=== PATIENT | female | born 1950 | race Caucasian/White ===

== ENCOUNTER → 2019-10-29 | Outpatient (CLI) | payer MEDICARE, OTHER ==
--- NOTE | 2019-10-29 18:09 | Diagnostic Imaging Report ---
HISTORY: Pain in the bilateral hands. No known injury. COMPARISON: None. TECHNIQUE: Two views of the bilateral hands. FINDINGS: No acute fracture or dislocation is seen in the bilateral hands. Alignment is normal. There are moderate degenerative changes in the bilateral hands, most notable at the basal joints of the thumb, and the right first interphalangeal joint. No cortical erosions are seen. IMPRESSION: 1. Degenerative changes in the bilateral hands with no acute osseous abnormality seen. Dictated by: Dictated on workstation # [id number]
== END ==
LOC: RAD FS 15:21
PROVIDERS: ATTEND Family Medicine
DX: M19.042 Primary osteoarthritis, left hand (principal); M19.041 Primary osteoarthritis, right hand

== ENCOUNTER → 2022-03-23 | Outpatient (CLI) | payer MEDICARE, OTHER ==
--- NOTE | 2022-03-23 13:03 | Diagnostic Imaging Report ---
PROCEDURE: CT head without contrast. TECHNIQUE: Multiple contiguous axial images were obtained through the brain without the use of intravenous contrast. Auto Exposure Controls were utilized during the CT exam to meet ALARA standards for radiation dose reduction. INDICATION: Fall, head pain, nausea, and dizziness; patient is anticoagulated. COMPARISON: I have no priors. FINDINGS: There is no intracranial hemorrhage, hydrocephalus, cerebral edema, mass, mass effect, nor evidence for an elevation of the intracerebral pressures. There is no calvarial fracture deformity. There is no hemo-sinus or pneumocephalus. Some angular deformity of the nasal septum without adjacent swelling or blood. This is presumed old, and no acute appearing facial fracture found. IMPRESSION: 1. No hemorrhage, edema, or acute appearing abnormalities. 2. Septal deformity, presumed old given the lack of regional swelling or sinus cavity blood. Dictated by: Dictated on workstation # [id number]
--- NOTE | 2022-03-23 16:22 | Diagnostic Imaging Report ---
INDICATION: Fall with nasal pain. EXAMINATION: AP and lateral views of the nasal bones were obtained. There is a fracture of the tip of the nasal bones, with slight inferior displacement of the distal fragment. No other bony abnormality is seen. Visualized sinuses are clear. IMPRESSION: Acute fracture of distal tip of the nasal bones with inferior displacement of distal fragment. Dictated by: Dictated on workstation # [id number]
== END ==
LOC: RAD FS 12:01
PROVIDERS: ATTEND Nurse Practitioner Family
DX: S02.2XXA Fracture of nasal bones, initial encounter for closed fracture (principal); W19.XXXA Unspecified fall, initial encounter
CPT/HCPCS: 70160; 70450

== ENCOUNTER → 2022-04-08 | Outpatient (CLI) | payer MEDICARE ==
--- NOTE | 2022-04-08 14:01 | Diagnostic Imaging Report ---
PROCEDURE: MR imaging of the brain without contrast. TECHNIQUE: Multiplanar, multisequence MR imaging of the brain was performed without contrast. INDICATION: Trauma. Head injury. Fall. Concussion. COMPARISON: CT head without contrast 03/23/2022. FINDINGS: Moderate generalized parenchymal volume loss. Mild nonspecific T2 hyperintensities in the supratentorial white matter are compatible with chronic small vessel ischemic change. 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 No restricted water diffusion. No hemosiderin deposition or evidence of intracranial hemorrhage. Normal morphology including the major midline structures, sella, posterior fossa, and cerebellopontine angle. Normal intracranial flow voids. No hydrocephalus or extra-axial fluid collections. Postoperative changes in the globes. Paranasal sinuses and mastoids are clear. Normal bone marrow signal. IMPRESSION: 1. No acute intracranial MRI findings. No evidence of acute infarction or hemorrhage. 2. 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 3. Age-appropriate generalized parenchymal volume loss and chronic small vessel ischemic change. Dictated by: Dictated on workstation # [id number]
== END ==
LOC: RAD 12:04
PROVIDERS: ATTEND Family Medicine
DX: I63.9 Cerebral infarction, unspecified (principal); E86.9 Volume depletion, unspecified; I99.8 Other disorder of circulatory system; S02.2XXD Fracture of nasal bones, subsequent encounter for fracture with routine healing
CPT/HCPCS: 70551

== ENCOUNTER 2022-05-18 11:28 | Emergency (ER) | payer MEDICARE ==
[~2022-05-18] VITALS: Ht 162.5 cm; Wt 97.7 kg
[2022-05-18] MEDS ORDERED: CEFEPIME INJECTION 1,000 MG in NS (IVPB) 50 ML IV ONE (11:45)
[2022-05-18] MEDS ORDERED: VANCOMYCIN INJECTION 1,000 MG in NS (IVPB) 250 ML IV ONE (11:45)
[2022-05-18] MEDS ORDERED: NS IV ONE (11:45)
[2022-05-18 11:47] LABS: BASOPHILS # (AUTO) 0.1 10^3/uL (0.0-0.1); BASOPHILS % (AUTO) 1 % (0-10); EOSINOPHILS # (AUTO) 0.3 10^3/uL (0.0-0.3); EOSINOPHILS % (AUTO) 3 % (0-10); HEMATOCRIT 30 % (35-52); HEMOGLOBIN 9.8 g/dL (11.5-16.0); LYMPHOCYTES % (AUTO) 9 % (12-44); MEAN CORPUSCULAR HEMOGLOBIN 29 pg (25-34); MEAN CORPUSCULAR HGB CONC 33 g/dL (32-36); MEAN CORPUSCULAR VOLUME 89 fL (80-99); MEAN PLATELET VOLUME 8.3 fL (9.0-12.2); MONOCYTES # (AUTO) 0.9 10^3/uL (0.0-1.0); MONOCYTES % (AUTO) 8 % (0-12); NEUTROPHILS # (AUTO) 8.9 10^3/uL (1.8-7.8); NEUTROPHILS % (AUTO) 79 % (42-75); PLATELET COUNT 384 10^3/uL (130-400); WHITE BLOOD COUNT 11.2 10^3/uL (4.3-11.0)
--- NOTE | 2022-05-18 11:51 | ED General ---
General Stated Complaint: DIAPHORESIS; ALTERED VISION; AMS; LT GREAT TOE INF Source of Information: Patient Exam Limitations: No Limitations History of Present Illness Date Seen by Provider: May 18, 2022 Time Seen by Provider: 11:33 Initial Comments 72-year-old female with diabetes, high blood pressure high cholesterol presents to the emergency department today for hypotension. She has been seeing Dr. Chisholm and started on antibiotics for the last 8 days for left great toe infection. She states she has pain in her left great toe extending up into her left leg to just proximal to the knee. She has had intermittent chills but no documented fevers. She went to his office today for a checkup and her blood pressure was in the 60s70s systolic. She states she woke up normally but about 1045 she had "spotty vision and lightheadedness." She felt a little "woozy" at that time. She did take her blood pressure medication this morning as per her usual. She denies any focal weakness numbness or tingling. All other systems reviewed and negative except documented per HPI. Voice recognition software was used to help create this chart Allergies and Home Medications Allergies Coded Allergies: Penicillins (Verified Allergy, Unknown, 05/18/22) Patient Home Medication List Home Medication List Reviewed: Yes Review of Systems Review of Systems Constitutional: weakness Past Diwfrkc-Csgqym-Gytiwp Hx Patient Social History Tobacco Use?: No Use of E-Cig and/or Vaping dev: No Substance use?: No Alcohol Use?: No Past Medical History Surgery/Hospitalization HX: htn, HLP, DM Family Medical History Reviewed Nursing Family Hx No Pertinent Family Hx Physical Exam Vital Signs Vital Signs - First Documented 05/18/22 11:28 Temp 35.1 Pulse 65 Resp 18 B/P (MAP) 66/46 (53) Pulse Ox 98 O2 Delivery Room Air Capillary Refill : Height, Weight, BMI Height: '" Weight: lbs. oz. kg; BMI Method: General Appearance: No Apparent Distress HEENT: PERRL/EOMI, Normal ENT Inspection, Pharynx Normal Neck: Full Range of Motion, Non Tender, Supple Respiratory: Chest Non Tender, Lungs Clear, Normal Breath Sounds, No Accessory Muscle Use, No Respiratory Distress Cardiovascular: Regular Rate, Rhythm, No Murmur, Normal Peripheral Pulses Gastrointestinal: Normal Bowel Sounds, No Organomegaly, Non Tender, Soft Extremity: Other (Left great toe is swollen, erythematous with some disclamation. Significantly tender to palpation. She has tenderness palpation and mild swelling from this area up to just proximal to her left knee. I am able to obtain pulses DP/PT with doppler and they are marked. Good strength and sensation.) Neurologic/Psychiatric: Alert, Oriented x3, No Motor/Sensory Deficits, Normal Mood/Affect, review trainer II-XII Norm as Tested Skin: Other (see above) Focused Exam Lactate Level 05/18/22 11:34: Lactic Acid Level 1.17 Lactic Acid Level Laboratory Tests Test 05/18/22 11:34 Lactic Acid Level 1.17 MMOL/L (0.50-2.00) Progress/Results/Core Measures Suspected Sepsis SIRS Temperature: Pulse: Respiratory Rate: Laboratory Tests 05/18/22 11:34: White Blood Count 11.2H Blood Pressure / Mean: 05/18/22 11:34: Lactic Acid Level 1.17 Laboratory Tests 05/18/22 11:34: Creatinine 4.12H, Platelet Count 384, Total Bilirubin 0.2 05/18/22 14:00: Creatinine 3.91H Results/Orders Lab Results Laboratory Tests Test 05/18/22 11:34 05/18/22 13:50 05/18/22 14:00 Range/Units White Blood Count 11.2 H 4.3-11.0 10^3/uL Red Blood Count 3.38 L 3.80-5.11 10^6/uL Hemoglobin 9.8 L 11.5-16.0 g/dL Hematocrit 30 L 35-52 % Mean Corpuscular Volume 89 80-99 fL Mean Corpuscular Hemoglobin 29 25-34 pg Mean Corpuscular Hemoglobin Concent 33 32-36 g/dL Red Cell Distribution Width 13.4 10.0-14.5 % Platelet Count 384 130-400 10^3/uL Mean Platelet Volume 8.3 L 9.0-12.2 fL Immature Granulocyte % (Auto) 1 % Neutrophils (%) (Auto) 79 H 42-75 % Lymphocytes (%) (Auto) 9 L 12-44 % Monocytes (%) (Auto) 8 0-12 % Eosinophils (%) (Auto) 3 0-10 % Basophils (%) (Auto) 1 0-10 % Neutrophils # (Auto) 8.9 H 1.8-7.8 10^3/uL Lymphocytes # (Auto) 1.0 1.0-4.0 10^3/uL Monocytes # (Auto) 0.9 0.0-1.0 10^3/uL Eosinophils # (Auto) 0.3 0.0-0.3 10^3/uL Basophils # (Auto) 0.1 0.0-0.1 10^3/uL Immature Granulocyte # (Auto) 0.1 0.0-0.1 10^3/uL Sodium Level 131 L 135 135-145 MMOL/L Potassium Level 6.7 *H 5.7 H 3.6-5.0 MMOL/L Chloride Level 102 106 98-107 MMOL/L Carbon Dioxide Level 16 L 17 L 21-32 MMOL/L Anion Gap 13 12 5-14 MMOL/L Blood Urea Nitrogen 65 H 64 H 7-18 MG/DL Creatinine 4.12 H 3.91 H 0.60-1.30 MG/DL Estimat Glomerular Filtration Rate 11 12 BUN/Creatinine Ratio 16 16 Glucose Level 179 H 174 H 70-105 MG/DL Glucometer 168 H 157 H 70-110 MG/DL Lactic Acid Level 1.17 0.50-2.00 MMOL/L Calcium Level 8.5 8.1 L 8.5-10.1 MG/DL Corrected Calcium 8.9 8.5-10.1 MG/DL Total Bilirubin 0.2 0.1-1.0 MG/DL Aspartate Amino Transf (AST/SGOT) 9 5-34 U/L Alanine Aminotransferase (ALT/SGPT) 8 0-55 U/L Alkaline Phosphatase 213 H 40-136 U/L Total Protein 6.8 6.4-8.2 GM/DL Albumin 3.5 3.2-4.5 GM/DL My Orders Orders - CHANTEL GARCÍA DO Cbc With Automated Diff (05/18/22 11:36) Comprehensive Metabolic Panel (05/18/22 11:36) Blood Culture (05/18/22 11:36) Chest 1 View Ap/Pa Only (05/18/22 11:36) Ed Iv/Invasive Line Start (05/18/22 11:36) Ed Iv/Invasive Line Start (05/18/22 11:36) Vital Signs Adult Sepsis Patie Q15M (05/18/22 11:36) Remove Rings In Anticipation O (05/18/22 11:36) Lactic Acid Analyzer (05/18/22 11:36) Ns Iv 1000 Ml (Sodium Chloride 0.9%) (05/18/22 11:45) Cefepime Injection (Maxipime Injection) (05/18/22 11:45) Vancomycin Injection (Vancomycin Injecti (05/18/22 11:45) Calc Gluc 1 Gm/100 Ml Ivpb (Calcium Gluc (05/18/22 12:15) Insulin (Regular) Human (Novolin R (Per (05/18/22 12:15) D50w (Emergency) Syringe (Dextrose 50% 5 (05/18/22 12:15) Sodium Bicarbonate 8.4% Syr (Sodium Bica (05/18/22 12:15) Ekg Tracing (05/18/22 12:14) Basic Metabolic Panel (05/18/22 13:49) Medications Given in ED Vital Signs/I&O 05/18/22 05/18/22 11:28 14:55 Temp 35.1 Pulse 65 67 Resp 18 14 B/P (MAP) 66/46 (53) 123/39 Pulse Ox 98 97 O2 Delivery Room Air Room Air Capillary Refill : ECG Comment My interpretation EKG is sinus rhythm with rate of 62 bpm. Normal intervals. Normal axis. No ST or T wave abnormalities. No ectopy. There is baseline interference in lead V5 and V6. No evidence for hyperkalemia. No STEMI. Diagnostic Imaging Comments My independent interpretation of the AP chest x-ray shows no acute pulmonary or cardiac abnormality. No free air under the diaphragm. Critical Care Note Critical Care Total Time (minutes) 60 Departure Communication (Admissions) Spoke to Dr. Jacques at 1234. She states to the patient's significant renal disease, hyperkalemia she would feel more comfortable with her going to a facility that has nephrology. She does have history of chronic kidney disease stage III states her most recent GFR had decreased from 17-15. She sees Dr. Avendano at [place] typically. Denies any changes in her urine output and has no dysuria, hematuria or other symptoms. Her blood pressure rapidly improved with IV fluids. Now 102/33 and she is feeling much better. Is unclear whether her blood pressures are related to dehydration or septic infection. Regardless she did get broad-spectrum antibiotics early on in her hospital course and was given 30 cc/kg bolus for sepsis required by CMS. 1 L this was given as an bolus and then the rest was decreased to 200 cc/h as her blood pressures rapidly improved and I do not want to cause pulmonary congestion I initially spoke with [facility] in [place]. They are at capacity and unable to take transfers a t this time. I spoke with Marianela Ventura and they are checking on availability at this time. Spoke to Dr Dong at 1320, accepts patient in transfer. Pending bed assignment. 1435: Marianela Ventura called to assign be, [id number]. Pending ambulance transport. Impression Primary Impression: CKD (chronic kidney disease) stage 4, GFR 15-29 ml/min Additional Impressions: Hyperkalemia Infected blister of great toe of left foot Qualified Codes: S90.422A - Blister (nonthermal), left great toe, initial encounter; L08.9 - Local infection of the skin and subcutaneous tissue, unspecified Septic shock Disposition: 02 XFER SHT-TRM HOSP Condition: Stable Departure-Patient Inst. Referrals: SELFMILAN MD (PCP/Family) Primary Care Physician CHANTEL GARCÍA DO May 18, 2022 11:51
--- NOTE | 2022-05-18 12:03 | Diagnostic Imaging Report ---
CLINICAL INDICATIONS: Patient with altered mental status and questionable sepsis and toe infection. EXAM: Portable chest x-ray upright view. COMPARISON: None. FINDINGS: Lungs/pleura: Lungs are clear. There is no pneumothorax. There is no pleural effusion. Mediastinum: Unremarkable. Pulmonary vasculature: Unremarkable. Heart: Unremarkable. Bones/extrathoracic soft tissue: There are hypertrophic spurs involving the thoracic spine. IMPRESSION: There is no radiographic evidence of acute cardiopulmonary process. Dictated by: Dictated on workstation # [id number]
[2022-05-18 12:14] LABS: POTASSIUM 6.7 MMOL/L (3.6-5.0)
[2022-05-18 12:15] LABS: BILIRUBIN,TOTAL 0.2 MG/DL (0.1-1.0); CALCIUM 8.5 MG/DL (8.5-10.1); CREATININE SERUM 4.12 MG/DL (0.60-1.30); TOTAL PROTEIN 6.8 GM/DL (6.4-8.2)
[2022-05-18] MEDS ORDERED: inSUlin (REGULAR) HUMAN 1 UNIT/0.01 ML (CHARGE PER UNIT) IV ONE (12:15)
[2022-05-18] MEDS ORDERED: DEXTROSE 50% 50 ML (IMS) SYR IV ONE (12:15)
[2022-05-18] MEDS ORDERED: CALC GLUC 1 GM/100 ML IVPB 100 ML IV ONE (12:15)
[2022-05-18] MEDS ORDERED: SODIUM BICARB 8.4% 50 MEQ/50 ML (ABBOTT) SYR IV ONE (12:15)
[2022-05-18 12:16] LABS: ALBUMIN 3.5 GM/DL (3.2-4.5)
[2022-05-18 14:27] LABS: POTASSIUM 5.7 MMOL/L (3.6-5.0)
[2022-05-18 14:28] LABS: CALCIUM 8.1 MG/DL (8.5-10.1); CREATININE SERUM 3.91 MG/DL (0.60-1.30)
[2022-05-18 14:55] VITALS: BP 123/39
== END 2022-05-18 14:55 | disposition short-term general hospital (02) ==
LOC: EDUNIT# 11:28 → ER FS 11:29
DX: L08.9 Local infection of the skin and subcutaneous tissue, unspecified (principal); R65.21 Severe sepsis with septic shock; E87.5 Hyperkalemia; I95.9 Hypotension, unspecified; E11.22 Type 2 diabetes mellitus with diabetic chronic kidney disease; I12.9 Hypertensive chronic kidney disease with stage 1 through stage 4 chronic kidney disease, or unspecified chronic kidney disease; N18.4 Chronic kidney disease, stage 4 (severe)
CPT/HCPCS: 36415; 71045; 80048; 80053; 82947; 83605; 85025; 87040; 93005